=== PATIENT | male | born 1965 | race Caucasian/White ===

== ENCOUNTER 2024-07-22 14:13 | Emergency (ER) | payer BC, SELFPAY ==
[2024-07-22] VITALS (13 sets, daily range): BP systolic 123–143; BP diastolic 81–94; PULSE 61–70; RESP 18–20; TEMP 36.3; O2SAT 96–99; BMI 32.5
--- NOTE | 2024-07-22 14:45 | CRLHL7_ITS ---
For Patients: As a result of the Cures Act, medical imaging exams and procedure reports are released immediately into your electronic medical record. You may view this report before your referring provider. If you have questions, please contact your health care provider. INDICATION: : SYNCOPE COMPARISON: None TECHNIQUE: Two view(s) of the chest FINDINGS: The cardiomediastinal silhouette and pulmonary vasculature are unremarkable. There is no focal airspace consolidation, pleural effusion, or pneumothorax. No displaced fractures. IMPRESSION: No acute cardiopulmonary process. Dictated by Booker Olivares MD @ 07/22/2024 3:29:40 PM (Electronically Signed)
--- NOTE | 2024-07-22 14:50 | ED_ITS ---
HPI - General Adult General Date Seen: 07/22/24 Chief complaint: Dizziness/Vertigo Stated complaint: Dizziness/Weakness Time Seen by Provider: 07/22/24 14:23 Source: patient Mode of arrival: ambulatory Limitations: no limitations History of Present Illness HPI narrative: Patient is a 59-year-old male presenting to emergency department for lightheadedness. He states he was at work this morning about 09:30 when he felt very lightheaded and his legs gave out on him. States he did not fully pass out. Has had issues with syncope in the past by states then he has always had tunnel vision this time there was no tunnel vision. I asked him if it felt like the room was spinning or like he was on about and he states no. Admission states he had a weird chest discomfort in his left a lower chest region but was having difficulty explaining what it felt like. That symptom has since resolved. Denies abdominal pain, headache, vision changes, numbness, diarrhea, constipation, dysuria. Still states his legs feel weak in overall he has not had much improvement despite drinking a lot of water at work so he came to the emergency department. He is a current smoker. Currently only takes Wellbutrin trying to his quit smoking. Does have a father who had multiple bypass surgeries with the 1st 1 being at age 65. He does not have any heart issues himself. No history of blood clots. Has not noticed any lower extremity swelling. Related Data Home Medications ?Medication ?Instructions ?Recorded ?Confirmed Wellbutrin 07/22/24 aspirin 81 mg capsule 81 mg PO DAILY 07/22/24 07/22/24 irbesartan 07/22/24 Allergies Allergy/AdvReac Type Severity Reaction Status Date / Time No Known Drug Allergies Allergy Verified 07/22/24 14:53 Review of Systems Status of ROS: Reports: 10 or more systems reviewed and unremarkable except as noted in History and below [facility] PFS Social History Smoking Status: Current every day smoker Non-prescribed substance use: denies use Exam Narrative: Exam Narrative: Const: Well-nourished, Well-developed, in mild distress Eyes: PERRL, no conjunctival injection, and symmetrical lids HENT: Atraumatic external nose and ears. Moist mucous membranes. Neck: Symmetric, trachea midline, No thyromegaly. CVS: RRR, No murmurs or gallops. Peripheral pulses 2+ and equal in all extremities RESP: Unlabored respiratory effort. Clear to auscultation bilaterally. GI: Nontender/Nondistended, No rebound or guarding. MSK:Extremities w/o deformity, Normal Active ROM Skin: Warm, Dry. No rashes or lesions. Neuro: Normal Muscle tone, No focal neurological deficits. Psych: Awake, Alert, & Oriented x3. Appropriate mood and affect. Const: Vital Signs, click to edit/add: Vital Signs - 24 hr 07/22/24 14:40 07/22/24 15:13 07/22/24 15:15 Temperature 97.3 F L Pulse Rate 63 67 Pulse Rate [Pulse Oximeter] 70 Respiratory Rate 18 20 Blood Pressure [Ri ght Upper Arm] 143/94 H Pulse Oximetry 98 96 96 Oxygen Delivery Me thod Room Air 07/22/24 15:30 07/22/24 15:45 Temperature Pulse Rate 61 63 Pulse Rate [Pulse Oximeter] Respiratory Rate Blood Pressure [Ri ght Upper Arm] Pulse Oximetry 99 99 Oxygen Delivery Me thod Course Vital Signs Vital signs: Initial Vital Signs Temperature 97.3 F L 07/22/24 14:40 Temperature Source Temporal Artery Scan 07/22/24 14:40 Pulse Rate 70 07/22/24 14:40 Pulse Rhythm Regular 07/22/24 14:40 Respiratory Rate 18 07/22/24 14:40 Blood Pressure 143/94 H 07/22/24 14:40 Blood Pressure Mean 110 H 07/22/24 14:40 Blood Pressure Position Supine 07/22/24 14:40 Pulse Oximetry 98 07/22/24 14:40 Oxygen Delivery Method Room Air 07/22/24 14:40 Vital Signs Temperature 97.3 F L 07/22/24 14:40 Pulse Rate 70 07/22/24 14:40 Respiratory Rate 18 07/22/24 14:40 Blood Pressure 143/94 H 07/22/24 14:40 Pulse Oximetry 98 07/22/24 14:40 Oxygen Delivery Method Room Air 07/22/24 14:40 Temperature 97.3 F L 07/22/24 14:40 Pulse Rate 63 07/22/24 15:45 Respiratory Rate 20 07/22/24 15:13 Blood Pressure 143/94 H 07/22/24 14:40 Pulse Oximetry 99 07/22/24 15:45 Oxygen Delivery Method Room Air 07/22/24 14:40 Medical Decision Making MDM Narrative Medical decision making narrative: Patient is a 59-year-old male presenting to the emergency department for his legs feeling weak and a near-syncope episode. He states he still feeling better at this time. Based on his description note sounds more syncope even any dizziness. He does have family history of heart disease and is a current smoker. Will do an EKG and troponin to look for signs of heart abnormalities. Symptoms could be related to a blood clot so a D-dimer was ordered. Will also order magnesium, BMP, CBC. Chest x-ray ordered. This chest pain he was having is very ill-defined and has now fully resolved. Chest x-ray reviewed myself the radiologist shows no acute concerning abnormalities. EKG shows concerning abnormalities. His lab work all returned showing no concerning abnormalities. For troponin shows no concerning findings. He is not having any chest pain at this time. She considering his risk factors though I spoke to order a a troponin. They are agreeable to doing the repeat troponin. A came back within normal limits. I am unsure exactly what causing his symptoms but he is safe for discharge. They are agreeable to this plan Lab Data Labs: Lab Results 07/22/24 07/22/24 Range/Units 15:03 15:21 WBC 6.69 (4.50-11.00) K/uL RBC 4.46 (4.30-5.90) m/uL Hgb 14.2 (13.5-17.5) gm/dL Hct 41.4 (37.0-53.0) % MCV 93 (80-100) fL MCH 32 (26-34) pg MCHC 34 (32-36) gm/dL RDW Coeff of Josefina 11.8 (11.5-15.5) % Plt Count 181 (140-440) K/uL Neut % (Auto) 60.9 (42.0-72.0) % Lymph % (Auto) 29.7 (20-44) % Eddy % (Auto) 5.1 (0.0-11.0) % Eos % (Auto) 3.0 (0.0-7.0) % Baso % (Auto) 0.3 (0.0-3.0) % Neut # (Auto) 4.07 (1.7-7.0) K/uL Lymph # (Auto) 1.99 (0.90-2.90) K/uL Eddy # (Auto) 0.30 (0.00-0.90) K/UL Eos # (Auto) 0.20 (0.00-0.50) K/uL Baso # (Auto) 0.02 (0.00-0.30) K/uL Abs Immat Gran (auto) 0.07 (0.00-0.30) K/uL Imm/Tot Granulo (auto) 1.0 % D-Dimer Quant (PE/DVT) < 0.27 (0.00-0.50) ug/ml Sodium 135 (135-149) mmol/L Potassium 4.0 (3.6-5.1) mmol/L Chloride 102 (96-114) mmol/L Carbon Dioxide 26 (20-32) mmol/L Anion Gap 7 (7-15) mEq/L BUN 12 (7-30) mg/dL Creatinine 0.9 (0.5-1.5) mg/dL Estimated Creat Clear 95.80 Estimated GFR 98 ml/min Glucose 95 (60-115) mg/dL Calcium 9.4 (8.4-10.6) mg/dL Magnesium 2.1 (1.5-2.6) mg/dL Troponin I < 0.01 L (0.01-0.04) ng/mL SARS-CoV-2 (PCR) Negative SARS-CoV-2 (Negative) Influenza Type A (PCR) Negative PCR FLU A (Negative) Influenza Type B (PCR) Negative PCR FLU B (Negative) POC Troponin I 0.00 L (0.01-0.04) ng/ml Imaging Data CT scan - chest: Radiologist's impression: No acute cardiopulmonary process. Dictated by Booker Olivares MD @ 07/22/2024 3:29:40 PM ECG Data Attestation: I personally reviewed and interpreted this ECG as follows: Prior ECG tracings: not available for review Interpretation: Normal sinus rhythm with rate of 68 beats per minute, normal intervals, normal axis, no ST or T-wave abnormalities. Discharge Plan Discharge Clinical Impression: Pre-syncope Patient Disposition: Home, Self-Care Condition: Improved Instructions: Near Syncope (ED) Additional Instructions: I am not exactly sure what is causing his symptoms today but this time I do not see any abnormalities within your heart heart, lungs, electrolytes. I recommend follow-up with your primary care provider and return to emergency department for any new or worsening symptoms. Prescriptions: No Action irbesartan Wellbutrin aspirin 81 mg capsule 81 mg PO DAILY Follow Up/Referrals: Provider,Not a Local [Primary Care Provider] - Stand Alone Forms: weipass Info Instructions
[2024-07-22 15:14] LABS: Basophils Absolute Auto 0.02 K/uL (0.00-0.30); Basophils Percent Auto 0.3 % (0.0-3.0); Hematocrit 41.4 % (37.0-53.0); Hemoglobin* 14.2 gm/dL (13.5-17.5); Immature Granulocytes Abs Auto 0.07 K/uL (0.00-0.30); Lymphocytes Absolute Auto 1.99 K/uL (0.90-2.90); Lymphocytes Percent Auto 29.7 % (20-44); Mean Corpuscular HGB Conc 34 gm/dL (32-36); Mean Corpuscular Hemoglobin 32 pg (26-34); Mean Corpuscular Volume 93 fL (80-100); Monocytes Percent Auto 5.1 % (0.0-11.0); Neutrophils Absolute Auto 4.07 K/uL (1.7-7.0); Neutrophils Percent Auto 60.9 % (42.0-72.0); Platelet Count* 181 K/uL (140-440); RDW Coefficient of Variation % 11.8 % (11.5-15.5); Red Blood Count 4.46 m/uL (4.30-5.90); White Blood Count* 6.69 K/uL (4.50-11.00)
[2024-07-22 15:45] LABS: Anion Gap 7 mEq/L (7-15); Blood Urea Nitrogen* 12 mg/dL (7-30); Calcium* 9.4 mg/dL (8.4-10.6); Carbon Dioxide* 26 mmol/L (20-32); Chloride* 102 mmol/L (96-114); Creatinine* 0.9 mg/dL (0.5-1.5); Estimated Glomerular Filt Rate 98 ml/min; Glucose* 95 mg/dL (60-115); Sodium* 135 mmol/L (135-149)
[2024-07-22 15:46] LABS: Magnesium* 2.1 mg/dL (1.5-2.6)
[2024-07-22 15:49] LABS: Slide Review Reflex No; Troponin I* < 0.01 ng/mL (0.01-0.04)
[2024-07-22 15:50] LABS: D Dimer Quantitative* < 0.27 ug/ml (0.00-0.50)
[2024-07-22 17:08] LABS: PCR FLU A Negative PCR FLU A (Negative); PCR FLU B Negative PCR FLU B (Negative); SARS PCR* Negative SARS-CoV-2 (Negative)
== END 2024-07-22 17:50 | disposition home or self-care (01) ==
PROVIDERS: Emergency Provider Student in an Organized Health Care Education/Training Program
DX: R55 Syncope and collapse (principal)
CPT/HCPCS: 36415; 71046; 80048; 83735; 84484; 85025; 85379; 87631; 93005; 99283; 99284; 99285